=== PATIENT | female | born 1985 | race Caucasian/White ===

== ENCOUNTER 2018-03-28 10:56 | Emergency (ER) | payer MEDICARE, MEDICAID | END 2018-03-28 11:00 | LOC: DL.ED 10:56 | DX: Z53.21 Procedure and treatment not carried out due to patient leaving prior to being seen by health care provider (principal) ==

== ENCOUNTER 2019-02-10 01:41 | Emergency (ER) | payer MEDICARE, MEDICAID ==
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
== END 2019-02-10 03:23 | disposition home or self-care (01) ==
LOC: DL.ED 01:41
DX: F41.9 Anxiety disorder, unspecified (principal); Z79.899 Other long term (current) drug therapy
CPT/HCPCS: 99283

== ENCOUNTER 2019-04-13 08:55 | Day surgery (SDC) | payer MEDICARE, MEDICAID ==
[~2019-04-13 08:55] MED LIST: Lactated Ringers 1,000 ML IV SCH; Sodium Chloride 0.9% 10 ML Syringe FLUSH PRN; ceFAZolin 2 GM in Premix Bag 1 BAG IV ONE
[2019-04-13] MEDS ORDERED: Lactated Ringers 1,000 ML IV ONE (08:56)
[2019-04-13] MEDS ORDERED: Lidocaine 1% 30 ML SDV ONE ×3 (08:56→15:38)
[2019-04-13] MEDS ORDERED: Succinylcholine 200 MG/10 ML MDV IV ONE (08:56)
[2019-04-13] MEDS ORDERED: Bupivacaine 0.5% 30 ML SDV ONE ×3 (08:56→15:38)
[2019-04-13] MEDS ORDERED: Midazolam 1 MG/ML 2 ML SDV IV ONE (08:56)
[2019-04-13] MEDS ORDERED: Rocuronium 100 MG/10 ML MDV IV ONE (08:56)
[2019-04-13] MEDS ORDERED: Propofol 200 MG/20 ML SDV IV ONE (08:56)
[2019-04-13] MEDS ORDERED: Glycopyrrolate 0.2 MG/ML 2 ML SDV ONE (08:56)
[2019-04-13] MEDS ORDERED: fentaNYL 100 MCG/2 ML SDV IV ONE (08:56)
[2019-04-13] MEDS ORDERED: Lidocaine 1% 30 ML SDV INJECT ONE ×3 (12:53→14:36)
[2019-04-13] MEDS ORDERED: Bupivacaine 0.5% 30 ML SDV INJECT ONE ×3 (12:53→14:36)
[2019-04-13] MEDS ORDERED: Acetaminophen/oxyCODONE 325-5 MG Tab PO PRN (15:00)
--- NOTE | 2019-04-13 15:04 | PCM.OPNOTE ---
- General Post-Op/Procedure Note Date of Surgery/Procedure: 04/13/19 Operative Procedure(s): left ankle syndesmosis reduction with internal fixation , lateral ankle stabilization brostrom-angel procedure with bone anchor Pre Op Diagnosis: left ankle syndesmosis rupture with lateral ankle tear and lateral ankle instability. Post-Op Diagnosis: lula Anesthesia Technique: General ET Tube, Local Primary Surgeon: Mary Lucio Anesthesia Provider: Bello Khalil EBL in mLs: 20 Complications: none Condition: Good Free Text/Narrative:: Intake & Output 04/13/19 04/13/19 04/13/19 06:59 14:59 22:59 Intake Total 50 Balance 50 Pt tolerated procedure well and was transported to recovery with vascular status intact to left LE. Arthrex tightrope XP x2 placed at syndesmosis, beata bone anchor to distal fibula. Ankle placed in well padded L&U splint with foot in eversion.
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
== END 2019-04-13 18:20 | disposition home or self-care (01) ==
LOC: DL.SDS 08:55
PROVIDERS: ATTEND Podiatrist
DX: S93.432A Sprain of tibiofibular ligament of left ankle, initial encounter (principal); S93.492A Sprain of other ligament of left ankle, initial encounter; M25.372 Other instability, left ankle; F41.9 Anxiety disorder, unspecified; F32.9 Major depressive disorder, single episode, unspecified; K21.9 Gastro-esophageal reflux disease without esophagitis; E66.9 Obesity, unspecified; F17.210 Nicotine dependence, cigarettes, uncomplicated; Z79.899 Other long term (current) drug therapy; Z68.41 Body mass index [BMI] 40.0-44.9, adult; X58.XXXA Exposure to other specified factors, initial encounter
CPT/HCPCS: 27698; 27829; 36415; 81025; 85025; A9270; J0330; J0690; J2001; J2250; J2704; J3010; J3490; J7120; 01480; C1713

== ENCOUNTER 2020-03-28 15:41 | Emergency (ER) | payer MEDICARE, MEDICAID ==
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
[2020-03-28] MEDS ORDERED: LORazepam 2 MG/ML SDV IM ONE (16:32)
== END 2020-03-28 18:40 | disposition home or self-care (01) ==
LOC: DL.ED 15:41
DX: F41.0 Panic disorder [episodic paroxysmal anxiety] (principal); E66.9 Obesity, unspecified; Z68.41 Body mass index [BMI] 40.0-44.9, adult; Z72.0 Tobacco use; Z79.899 Other long term (current) drug therapy
CPT/HCPCS: 96372; 99283; J2060

== ENCOUNTER 2021-06-03 01:55 | Emergency (ER) | payer MEDICARE, MEDICAID ==
[2021-06-03] MEDS ORDERED: Ondansetron 4 MG/2 ML SDV IVPUSH ONE (02:06)
[2021-06-03] MEDS ORDERED: Ketorolac 30 MG/ML SDV IVPUSH ONE (02:06)
[2021-06-03] MEDS ORDERED: Sodium Chloride 0.9% 1,000 ML IV ONE (02:06)
[2021-06-03] MEDS ORDERED: diphenhydrAMINE 50 MG/ML SDV IVPUSH ONE (02:08)
[2021-06-03 02:39] LABS: ANION GAP 13.8 mEq/L (7-13); CHLORIDE,CL 103 mmol/L (98-107); SODIUM,NA 139 mmol/L (136-145)
== END 2021-06-03 03:24 | disposition home or self-care (01) ==
LOC: DL.ED 01:55
DX: G43.909 Migraine, unspecified, not intractable, without status migrainosus (principal); K21.9 Gastro-esophageal reflux disease without esophagitis; E66.9 Obesity, unspecified; Z91.09 Other allergy status, other than to drugs and biological substances; Z68.41 Body mass index [BMI] 40.0-44.9, adult
CPT/HCPCS: 36415; 80053; 85025; 96374; 96375; 99283; 99283-25; J1200; J1885; J2405; J7030

== ENCOUNTER 2022-01-08 03:37 | Emergency (ER) | payer MEDICARE, MEDICAID ==
[2022-01-08] MEDS ORDERED: Polyethylene Glycol 3350 Powder 17 GM Packet PO ONE (03:38)
[2022-01-08] MEDS ORDERED: traMADol 50 MG Tab PO ONE (04:31)
[2022-01-08 04:35] LABS: ANION GAP 11.5 mEq/L (7-13); CHLORIDE,CL 107 mmol/L (98-107); SODIUM,NA 139 mmol/L (136-145)
[2022-01-08 04:39] LABS: ESTIMATED GFR 83 mL/min (>=60)
[2022-01-08 05:30] LABS: AMPHETAMINES,URINE NEGATIVE (NEGATIVE); BARBITURATES,URINE NEGATIVE (NEGATIVE); BENZODIAZEPINE,URINE NEGATIVE (NEGATIVE); MDMA (ECSTASY), URINE NEGATIVE (NEGATIVE); METHADONE,URINE NEGATIVE (NEGATIVE); METHAMPHETAMINES,URINE NEGATIVE (NEGATIVE); OPIATES,URINE NEGATIVE (NEGATIVE); OXYCODONE,URINE NEGATIVE (NEGATIVE); PHENCYCLIDINE,URINE NEGATIVE (NEGATIVE); TCA,URINE NEGATIVE (NEGATIVE)
[2022-01-08] MEDS ORDERED: Sodium Chloride 0.9% 1,000 ML IV ONE (06:25)
[2022-01-08] MEDS ORDERED: Polyethylene Glycol 3350 Powder 17 GM Packet ONE (06:39)
== END 2022-01-08 07:32 | disposition home or self-care (01) ==
LOC: DL.ED 03:37
DX: K59.01 Slow transit constipation (principal); F17.210 Nicotine dependence, cigarettes, uncomplicated; E66.9 Obesity, unspecified; Z68.41 Body mass index [BMI] 40.0-44.9, adult; Z91.048 Other nonmedicinal substance allergy status; Z79.899 Other long term (current) drug therapy
CPT/HCPCS: 36415; 72080; 80053; 80305; 81001; 82150; 83605; 83690; 83735; 84703; 85025; 86140; 87086; 96360; 99284; A9270; J7030

== ENCOUNTER 2023-06-09 21:10 | Emergency (ER) | payer MEDICARE, MEDICAID ==
[2023-06-09] MEDS: Take Home: Amoxicillin/Clavulanate K 875-125 MG Tab, 6 Tab Pack PO ONE (22:17)
[2023-06-09] MEDS: Take Home: Lidocaine 2% Viscous Solution 15 ML UD, 2 Cup Pack PO ONE (22:18)
[2023-06-09] MEDS: Amoxicillin/Clavulanate K 875-125 MG Tab PO ONE (22:22)
== END 2023-06-09 22:33 | disposition home or self-care (01) ==
LOC: DL.ED 21:10
DX: K02.9 Dental caries, unspecified (principal); E66.9 Obesity, unspecified; F17.210 Nicotine dependence, cigarettes, uncomplicated; Z91.048 Other nonmedicinal substance allergy status; Z79.899 Other long term (current) drug therapy; Z90.49 Acquired absence of other specified parts of digestive tract; Z68.42 Body mass index [BMI] 45.0-49.9, adult
CPT/HCPCS: 99282; A9270

== ENCOUNTER 2023-11-01 01:28 | Emergency (ER) | payer MEDICARE, MEDICAID ==
[2023-11-01] MEDS: Acetaminophen/HYDROcodone 325-10 MG Tab PO ONE (01:58)
[2023-11-01] MEDS: Dexamethasone 4 MG/ML SDV IVPUSH ONE (01:58)
[2023-11-01] MEDS: Pseudoephedrine 30 MG Tab PO ONE (01:59)
[2023-11-01] MEDS ORDERED: Take Home: Acetaminophen/HYDROcodone 325-5 MG, 5 Tab Pack PO ONE (02:19)
== END 2023-11-01 02:27 | disposition home or self-care (01) ==
LOC: DL.ED 01:28
DX: H69.92 Unspecified Eustachian tube disorder, left ear (principal); E66.9 Obesity, unspecified; Z68.41 Body mass index [BMI] 40.0-44.9, adult; Z90.49 Acquired absence of other specified parts of digestive tract; Z91.048 Other nonmedicinal substance allergy status
CPT/HCPCS: 96374; 99282-25; 99283; A9270-GY; J1100